=== PATIENT | female | born 1985 | race Caucasian/White ===

== ENCOUNTER → 2018-11-07 | Outpatient (CLI) | payer OTHER ==
[2018-11-07 10:17] LABS: BASOPHILS # (AUTO) 0.02 x10^3/uL (0-0.1); BASOPHILS % (AUTO) 0 % (0-1); EOSINOPHILS # (AUTO) 0.07 x10^3/uL (0-0.4); EOSINOPHILS % (AUTO) 1 % (1-7); LYMPHOCYTES # (AUTO) 2.11 x10^3/uL (1-3.4); LYMPHOCYTES % (AUTO) 40 % (22-44); MD NO; MEAN CORPUSCULAR HEMOGLOBIN 29.6 pg (27.0-34.8); MEAN CORPUSCULAR HGB CONC 35.2 g/dL (32.4-35.8); MEAN CORPUSCULAR VOLUME 84.1 fL (80-100); MEAN PLATELET VOLUME 8.2 fL (7.4-10.4); MONOCYTES # (AUTO) 0.27 x10^3/uL (0.2-0.8); MONOCYTES % (AUTO) 5 % (2-9); NEUTROPHILS # (AUTO) 2.76 x10^3/uL (1.8-6.8); NEUTROPHILS % (AUTO) 53 % (42-75); PLATELET COUNT 294 x10^3/uL (130-400); RED BLOOD COUNT 4.98 x10^6/uL (3.82-5.3); RED CELL DISTRIBUTION WIDTH 12.6 % (9.6-15.2)
[2018-11-07 10:21] LABS: MICROSCOPIC AUTO
[2018-11-07 10:27] LABS: CULTURE INDICATED? NO
[2018-11-07 12:29] LABS: ALBUMIN 4.1 g/dL (3.4-5.0); ANION GAP 5 mmol/L (5-15); CALCIUM 9.3 mg/dL (8.5-10.1); CHLORIDE 109 mmol/L (98-107); CHOLESTEROL, TOTAL 183 mg/dL (140-239)
[2018-11-07 14:20] LABS: % IRON SATURATION 33 % (20-55); ALANINE AMINOTRANSFERASE 25 U/L (12-78); ALKALINE PHOSPHATASE 101 U/L (45-117); BILIRUBIN,TOTAL 0.4 mg/dL (0.2-1.0); CHOL/HDL RATIO 3.5; CREATININE 1.13 mg/dL (0.55-1.02); HDL CHOL % 28 % (28-40); HDL CHOLESTEROL (DIRECT) 52 mg/dL (40-60); IRON LEVEL 110 mcg/dL (50-170); THYROID STIMULATING HORMONE 0.664 mIU/L (0.358-3.740); TOTAL IRON BINDING CAPACITY 337 mcg/dL (250-450); TOTAL PROTEIN 7.5 g/dL (6.4-8.2)
[2018-11-07 15:59] LABS: TRIGLYCERIDES 96 mg/dL (50-200); VLDL CHOLESTEROL 19 mg/dL (0-25)
[2018-11-07 16:41] LABS: FOLATE LEVEL > 20.0 ng/mL (3.1-17.5)
[2018-11-07 17:57] LABS: LDL CHOLESTEROL,CALCULATED 112 mg/dL (54-169); LDL/HDL RATIO 2.2 (0.5-3.0)
== END | disposition home or self-care (01) ==
LOC: LAB 09:40
PROVIDERS: ATTEND Chiropractor
DX: G47.19 Other hypersomnia (principal); F41.9 Anxiety disorder, unspecified; G47.09 Other insomnia; R53.83 Other fatigue; Z86.2 Personal history of diseases of the blood and blood-forming organs and certain disorders involving the immune mechanism
CPT/HCPCS: 36415; 80053; 80061; 81001; 81383; 82306; 82607; 82746; 83036; 83540; 83550; 83735; 84443; 85025

== ENCOUNTER → 2018-12-01 | Outpatient (CLI) | payer OTHER | END | disposition home or self-care (01) | LOC: CFH 09:46 | PROVIDERS: ATTEND Family Medicine | DX: R59.9 Enlarged lymph nodes, unspecified (principal) | CPT/HCPCS: 76536 ==

== ENCOUNTER → 2019-02-02 | Outpatient (CLI) | payer OTHER ==
[2019-02-02 13:32] LABS: BASOPHILS # (AUTO) 0.04 x10^3/uL (0-0.1); BASOPHILS % (AUTO) 1 % (0-1); EOSINOPHILS # (AUTO) 0.15 x10^3/uL (0-0.4); EOSINOPHILS % (AUTO) 2 % (1-7); LYMPHOCYTES # (AUTO) 2.39 x10^3/uL (1-3.4); LYMPHOCYTES % (AUTO) 31 % (22-44); MD NO; MEAN CORPUSCULAR HEMOGLOBIN 28.4 pg (27.0-34.8); MEAN CORPUSCULAR HGB CONC 33.2 g/dL (32.4-35.8); MEAN CORPUSCULAR VOLUME 85.4 fL (80-100); MEAN PLATELET VOLUME 7.9 fL (7.4-10.4); MONOCYTES # (AUTO) 0.39 x10^3/uL (0.2-0.8); MONOCYTES % (AUTO) 5 % (2-9); NEUTROPHILS # (AUTO) 4.73 x10^3/uL (1.8-6.8); NEUTROPHILS % (AUTO) 62 % (42-75); PLATELET COUNT 318 x10^3/uL (130-400); RED BLOOD COUNT 4.87 x10^6/uL (3.82-5.3); RED CELL DISTRIBUTION WIDTH 13.1 % (9.6-15.2)
[2019-02-02 13:34] LABS: HCT (SEDRATE) 41.6 % (34.6-47.8)
== END | disposition home or self-care (01) ==
LOC: LAB 13:20
PROVIDERS: ATTEND Podiatrist
DX: M79.675 Pain in left toe(s) (principal); L03.032 Cellulitis of left toe
CPT/HCPCS: 36415; 85025; 85651; 86140

== ENCOUNTER 2020-01-15 20:48 | Emergency (ER) | payer OTHER ==
[~2020-01-15] VITALS: Ht 175.3 cm; Wt 80.0 kg
[2020-01-15 20:53] VITALS: BP 123/82
--- NOTE | 2020-01-15 21:32 | NUR ---
DR. GRIFFITH AT BEDSIDE EVALUATING PT
[2020-01-15] MEDS ORDERED: ACETAMINOPHEN 500 MG TABLET PO PRN (22:00)
[2020-01-15] MEDS ORDERED: ACETAMINOPHEN 500 MG TABLET ONE (22:06)
--- NOTE | 2020-01-15 22:09 | NUR ---
PT MEDICATED PER EMAR. 5 RIGHTS ADDRESSED
[2020-01-15 22:11] LABS: RAPID INFLUENZA A Negative (Negative); RAPID INFLUENZA B Negative (Negative)
--- NOTE | 2020-01-15 23:14 | NUR ---
Patient/Caregiver given discharge instructions and they have confirmed that they understand the instructions. Patient ambulatory with steady gait.
== END 2020-01-15 23:47 | disposition home or self-care (01) ==
LOC: ED 21:19
DX: B34.9 Viral infection, unspecified (principal); Z20.828 Contact with and (suspected) exposure to other viral communicable diseases; R51 Headache; R06.00 Dyspnea, unspecified
CPT/HCPCS: 71045; 87400; 99284

== ENCOUNTER 2020-07-12 18:46 | Emergency (ER) | payer OTHER ==
[~2020-07-12] VITALS: Ht 175.3 cm; Wt 95.5 kg
--- NOTE | 2020-07-12 19:00 | NUR ---
CARE ASSUMED OF PT. ERP AT BEDSIDE TO [facility].
--- NOTE | 2020-07-12 19:02 | NUR ---
PT PRESENTS WITH LLQ ABD SINCE YESTERDAY. SUDDEN ONSET. INTERMITTENT SHARP STABBING PAIN. MILD NAUSEA. DENIES VOMITING OR DIARRHEA. DENIES URINARY SYMPTOMS. CALL LIGHT IN REACH.
[2020-07-12] MEDS ORDERED: ONDANSETRON 2MG/ML, 2ML ONE (19:08)
[2020-07-12] MEDS ORDERED: HYDROmorphone 1 MG/ML, 1ML INJ ONE (19:08)
[2020-07-12 19:13] LABS: MICROSCOPIC NOT IND
[2020-07-12 19:20] LABS: BASOPHILS # (AUTO) 0.07 x10^3/uL (0-0.1); BASOPHILS % (AUTO) 1 % (0-1); EOSINOPHILS # (AUTO) 0.27 x10^3/uL (0-0.4); EOSINOPHILS % (AUTO) 2 % (1-7); LYMPHOCYTES # (AUTO) 4.45 x10^3/uL (1-3.4); LYMPHOCYTES % (AUTO) 34 % (22-44); MD NO; MEAN CORPUSCULAR HEMOGLOBIN 29.2 pg (27.0-34.8); MEAN CORPUSCULAR HGB CONC 32.9 g/dL (32.4-35.8); MEAN CORPUSCULAR VOLUME 88.8 fL (80-100); MEAN PLATELET VOLUME 7.3 fL (7.4-10.4); MONOCYTES # (AUTO) 0.78 x10^3/uL (0.2-0.8); MONOCYTES % (AUTO) 6 % (2-9); NEUTROPHILS # (AUTO) 7.72 x10^3/uL (1.8-6.8); NEUTROPHILS % (AUTO) 58 % (42-75); PLATELET COUNT 375 x10^3/uL (130-400); RED BLOOD COUNT 4.71 x10^6/uL (3.82-5.3); RED CELL DISTRIBUTION WIDTH 13.7 % (9.6-15.2)
--- NOTE | 2020-07-12 19:27 | NUR ---
IV access obtained and pt medicated per dec for intermittent 7/[address] Call light in reach. No further needs expressed. UA has been collected and walked to lab.
[2020-07-12 19:28] LABS: ALBUMIN 3.8 g/dL (3.4-5.0); ANION GAP 7 mmol/L (5-15); CALCIUM 8.6 mg/dL (8.5-10.1); CHLORIDE 113 mmol/L (98-107); CREATININE 1.26 mg/dL (0.55-1.02)
[2020-07-12] MEDS ORDERED: ONDANSETRON 2MG/ML, 2ML IVPush ONE (19:30)
[2020-07-12] MEDS ORDERED: HYDROmorphone 1 MG/ML, 1ML INJ IVPush PRN (19:30)
[2020-07-12] MEDS ORDERED: SODIUM CHLORIDE FLUSH 10ML SYR IVF ONE (19:30)
[2020-07-12] MEDS ORDERED: SODIUM CHLORIDE 0.9% 1,000 ML IV ONE (19:52)
[2020-07-12] MEDS ORDERED: MORPHINE SULFATE 4 MG/ML, 1ML ONE ×2 (19:55→21:07)
[2020-07-12] MEDS: MORPHINE SULFATE 4 MG/ML, 1ML IVPush PRN ×2 (19:59→21:09)
[2020-07-12] MEDS ORDERED: SODIUM CHLORIDE 0.9% 1,000ML IVBOLUS ONE (20:00)
--- NOTE | 2020-07-12 20:00 | NUR ---
Pt states dilaudid made her feel worse. C/O "spasms" in upper abd at this time. Discussed with ERP and order for morphine received. Pt medicated per MAR. Fluids infusing. Monitoring in place. Call light in reach. Awaiting US.
--- NOTE | 2020-07-12 20:19 | NUR ---
Pt to US via archie.
--- NOTE | 2020-07-12 20:50 | NUR ---
Pt remains in US.
--- NOTE | 2020-07-12 21:16 | NUR ---
Pt medicated per continued 02/27 LLQ abd pain. VSS. Pt to CT via archie.
[2020-07-12] MEDS ORDERED: OMNIPAQUE 350 MG/ML, 100ML BOTTLE ONE (21:26)
--- NOTE | 2020-07-12 22:05 | NUR ---
Pt resting with no needs expressed. States pain is better at this time. VSS. Call light in reach. Awaiting CT results.
[2020-07-12 22:46] VITALS: BP 105/66
== END 2020-07-12 22:49 | disposition home or self-care (01) ==
LOC: ED 19:25
DX: R10.32 Left lower quadrant pain (principal); R11.0 Nausea
CPT/HCPCS: 36415; 74177; 76830; 80048; 81003; 82040; 84703; 85025; 96361; 96374; 96375; 96376; 99285; J1170; J2270; J2405; J7030; Q9967

== ENCOUNTER 2021-02-03 08:48 | Outpatient (CLI) | payer OTHER ==
[2021-02-03 09:12] LABS: BASOPHILS % (AUTO) 1 % (0-1); EOSINOPHILS % (AUTO) 2 % (1-7); LYMPHOCYTES % (AUTO) 31 % (22-44); MEAN CORPUSCULAR HEMOGLOBIN 29.3 pg (27.0-34.8); MEAN CORPUSCULAR HGB CONC 34.3 g/dL (32.4-35.8); MEAN PLATELET VOLUME 7.4 fL (7.4-10.4); MONOCYTES % (AUTO) 6 % (2-9); NEUTROPHILS % (AUTO) 61 % (42-75); PLATELET COUNT 336 x10^3/uL (130-400); RED BLOOD COUNT 4.85 x10^6/uL (3.82-5.3)
[2021-02-03 09:16] LABS: MD NO
[2021-02-03 09:22] LABS: HCT (SEDRATE) 41.3 % (34.6-47.8)
[2021-02-03 09:23] LABS: ALANINE AMINOTRANSFERASE 25 U/L (12-78); ALBUMIN 3.8 g/dL (3.4-5.0); ANION GAP 6 mmol/L (5-15); CALCIUM 8.9 mg/dL (8.5-10.1); CHLORIDE 110 mmol/L (98-107); HIGH-SENSITIVITY CRP 0.52 mg/dL (0.02-0.30)
[2021-02-03 09:31] LABS: ALKALINE PHOSPHATASE 127 U/L (45-117); BILIRUBIN,TOTAL 0.5 mg/dL (0.2-1.0); CHOL/HDL RATIO 4.2; CHOLESTEROL, TOTAL 206 mg/dL (140-239); HDL CHOL % 24 % (28-40); HDL CHOLESTEROL (DIRECT) 49 mg/dL (40-60); LDL CHOLESTEROL,CALCULATED 125 mg/dL (54-169); LDL/HDL RATIO 2.6 (0.5-3.0); TOTAL PROTEIN 7.6 g/dL (6.4-8.2); TRIGLYCERIDES 160 mg/dL (50-200); VLDL CHOLESTEROL 32 mg/dL (0-25)
[2021-02-03 09:32] LABS: T4 (THYROXINE) 9.3 mcg/dL (4.8-13.9)
== END 2021-02-03 23:59 | disposition home or self-care (01) ==
LOC: LAB 08:48
PROVIDERS: ATTEND Family Medicine
DX: Z13.220 Encounter for screening for lipoid disorders (principal); Z13.1 Encounter for screening for diabetes mellitus; E55.9 Vitamin D deficiency, unspecified; R63.5 Abnormal weight gain; R53.83 Other fatigue; Z68.35 Body mass index [BMI] 35.0-35.9, adult
CPT/HCPCS: 36415; 80053; 80061; 82306; 82670; 83001; 83002; 83036; 84144; 84403; 84436; 84443; 84480; 85025; 85651; 86038; 86141; 86376